=== PATIENT | female | born 1960 | race Caucasian/White ===

== ENCOUNTER 2017-02-07 11:52 | Emergency (ER) | payer BC ==
[2017-02-07 11:59] VITALS: BP 162/97; PULSE 60; TEMP 97.4; BMI 31.4
[2017-02-07] MEDS ORDERED: OFLOXACIN 0.3% OTIC SOLUTION 5 ML BOTTLE AS ONE (12:23)
--- NOTE | 2017-02-07 12:23 | PDOC ---
History of Present Illness - General Chief Complaint: Ear Problem Stated Complaint: EAR INFECTION Time Seen by Provider: 02/07/17 12:06 History Source: Patient Exam Limitations: No Limitations - History of Present Illness Initial Comments: 02/07/17 12:25 MY CHIEF COMPLAINT: left ear pain HISTORY OF PRESENT ILLNESS: Pt. is a 56-year-old female with history of hypertension here today complaining of left ear pain since last night. Patient reports that she went swimming on 02/03/2017. Patient reports that she feels throbbing in her left ear that is currently a 3. Patient denies any loss of hearing or any discharge from her ear. Patient denies any fever or any other symptoms. Patient's blood pressure is elevated today forgot to take her losartan this morning, pt. is asymptomatic. Denies any headache. Pain left ear is currently a 3 out of 10 throbbing in nature. 02/07/17 12:33 02/07/17 12:35 Timing/Duration: other (since last night ) Severity: mild (left ear) Associated Symptoms: reports: denies symptoms Past History - Past Medical History Allergies/Adverse Reactions: Allergies Allergy/AdvReac Type Severity Reaction Status Date / Time No Known Allergies Allergy Verified 02/07/17 11:59 Home Medications: Ambulatory Orders Lisinopril 10 mg PO ASDIR 02/07/17 Anemia: No Asthma: No Cancer: No Cardiac Disorders: No CVA: No COPD: No CHF: No Dementia: No Diabetes: No GI Disorders: No Disorders: No HTN: Yes Hypercholesterolemia: No Liver Disease: No Seizures: No Thyroid Disease: No - Surgical History Abdominal Surgery: No Appendectomy: No Cardiac Surgery: No Cholecystectomy: No Lung Surgery: No Neurologic Surgery: No Orthopedic Surgery: No - Psycho/Social/Smoking Cessation Hx Suicidal Ideation: No Smoking History: Never smoked Have you smoked in the past 12 months: No If you are a former smoker, when did you quit?: many yrs ago Information on smoking cessation initiated: No Hx Alcohol Use: No Drug/Substance Use Hx: No Substance Use Type: None Hx Substance Use Treatment: No Review of Systems - Review of Systems Able to Perform ROS?: Yes Constitutional: No: Symptoms Reported HEENTM: Yes: Ear Pain (left ). No: Nose Pain, Nose Congestion, Hearing Loss, Throat Pain, Throat Swelling, Mouth Pain, Dental Problems, Difficulty Swallowing , Mouth Swelling Respiratory: No: Symptoms reported Cardiac (ROS): No: Symptoms Reported ABD/GI: No: Symptoms Reported : No: Symptoms Reported Musculoskeletal: No: Symptoms Reported Integumentary: No: Symptoms Reported Neurological: No: Symptoms reported *Physical Exam - Vital Signs Last Vital Signs Temp Pulse Resp BP Pulse Ox 97.4 F L 60 18 162/97 99 02/07/17 11:54 02/07/17 11:54 02/07/17 11:54 02/07/17 11:54 02/07/17 11:54 - Physical Exam General Appearance: Yes: Appropriately Dressed HEENT: positive: TMs Normal, Other (left external ear canal edema/erythema, TM pearly wolfe, no mastoid tenderness left ). negative: Pharyngeal Erythema, Tonsillar Exudate, Tonsillar Erythema, Nasal Congestion, Rhinorrhea, Sinus Tenderness, TM Erythema Neck: positive: Lymphadenopathy (L) (post auricular ). negative: Lymphadenopathy (R) Respiratory/Chest: positive: Lungs Clear, Normal Breath Sounds. negative: Chest Tender, Respiratory Distress Cardiovascular: positive: Regular Rhythm, Regular Rate, S1, S2 Integumentary: positive: Normal Color Medical Decision Making - Medical Decision Making 02/07/17 12:36 Pt. is a 56-year-old female with history of hypertension here today complaining of left ear pain since last night. Patient reports that she went swimming on 02/03/2017. Patient reports that she feels throbbing in her left ear that is currently a 3. Patient denies any loss of hearing or any discharge from her ear. Patient denies any fever or any other symptoms. Patient's blood pressure is elevated today forgot to take her losartan this morning, pt. is asymptomatic. Denies any headache. Pain left ear is currently a 3 out of 10 throbbing in nature. Left ear otitis external PLAN: ofloxacin 0.3 % otic josé 10 drops left ear pt. does not want pain medication at this time follow up with ENT if needed *DC/Admit/Observation/Transfer Diagnosis at time of Disposition: Otitis externa of left ear Qualifiers: Otitis externa type: swimmer's ear Chronicity: acute Qualified Code(s): H60.332 - Swimmer's ear, left ear - Discharge Dispostion Disposition: HOME Condition at time of disposition: Stable - Referrals Referrals: Eddie Espinal MD [Staff Physician] - - Patient Instructions Additional Instructions: USE OFLOXACIN 0.3% OTIC DROPS 10 DROPS IN LEFT EAR DAILY FOR 7 DAYS MAKE SURE YOU DRY YOUR EARS THOROUGHLY AFTER BATHING OR SWIMMING FOLLOW UP WITH ENT IF NEEDED RETURN TO EMERGENCY ROOM IF SYMPTOMS WORSEN OR NEW SYMPTOMS DEVELOP TAKE IBUPROFEN OR ACETAMINOPHEN DIRECTED BY HEALTH AND WELLNESS INSTRUCTOR FOR PAIN PATIENT VOICED UNDERSTANDING OF DISCHARGE INSTRUCTIONS AND ALL QUESTIONS WERE ANSWERED
== END 2017-02-07 12:52 | disposition home or self-care (01) ==
LOC: JERFT 11:52
DX: H60.332 Swimmer's ear, left ear (principal); I10 Essential (primary) hypertension
CPT/HCPCS: 99281-25

== ENCOUNTER 2021-04-27 14:19 | Emergency (ER) | payer BC ==
[2021-04-27] MEDS ORDERED: FAMOTIDINE 20 MG/50 ML IVPB 20 MG/50 ML MG IVPB ONE ×2 (14:43→15:40)
[2021-04-27] MEDS ORDERED: MAG HYDROX/AL HYDROX/SIMETH -MYLANTA- ORAL SUSPENSION PO ONE (14:43)
[2021-04-27] MEDS ORDERED: ACETAMINOPHEN 1000 MG/100 ML VIAL (NON FORMULARY) IVPB ONE (14:43)
[2021-04-27] MEDS ORDERED: ACETAMINOPHEN INJECTION 100 ML IVPB ONE (15:40)
[2021-04-27] MEDS ORDERED: MAG HYDROX/AL HYDROX/SIMETH 30 ML UNIT-DOSE CUP ONE (15:40)
[2021-04-27 15:47] VITALS: BP 178/91; PULSE 76; TEMP 98; BMI 28.3
[2021-04-27 15:59] LABS: BASO % 0.8 % (0-2.0); EOS % 1.4 % (0-4.5); HEMATOCRIT 41.2 % (32.4-45.2); HEMOGLOBIN 14.5 GM/dL (10.7-15.3); LYMPH % 31.4 % (8-40); MCH 31.1 pg (25.7-33.7); MCHC 35.2 g/dl (32.0-36.0); MEAN CELL VOLUME 88.5 fl (80-96); MEAN PLT VOLUME 9.4 fl (7.5-11.1); MONO % 9.1 % (3.8-10.2); NEUT % 57.3 % (42.8-82.8); PLATELET COUNT 331 10^3/uL (134-434); RBC 4.65 M/mm3 (3.60-5.2); RDW 12.7 % (11.6-15.6); WHITE BLOOD COUNT 6.6 K/mm3 (4.0-10.0)
[2021-04-27 16:28] LABS: CHLORIDE 102 mmol/L (98-107); SODIUM 138 mmol/L (136-145)
[2021-04-27 16:32] LABS: ALBUMIN 3.8 g/dl (3.4-5.0); ANION GAP 5 MMOL/L (8-16); BLOOD UREA NITROGEN 19.9 mg/dL (7-18); CO2 31 mmol/L (21-32); GLUCOSE,RANDOM 115 mg/dL (74-106)
[2021-04-27 16:35] LABS: CREATININE 0.8 mg/dL (0.55-1.3); SGOT/AST 15 U/L (15-37); SGPT/ALT 24 U/L (13-61)
[2021-04-27 16:37] LABS: BILIRUBIN,TOTAL 0.7 mg/dL (0.2-1); TOT PROT 7.2 g/dl (6.4-8.2)
[2021-04-27 16:38] LABS: ALK PHOS 70 U/L (45-117)
== END 2021-04-27 18:43 | disposition home or self-care (01) ==
LOC: JER 14:19
PROC: 3E033GC Introduction of Other Therapeutic Substance into Peripheral Vein, Percutaneous Approach (ICD-10-PCS; principal; 2021-04-27)
DX: R07.9 Chest pain, unspecified (principal)
CPT/HCPCS: 36415; 71045-TC-FY; 80053; 84484; 85025; 93005; 93010; 99285-25; J0131